=== PATIENT | male | born 1945 | race Caucasian/White ===

== ENCOUNTER 2019-08-02 19:27 | Emergency (ER) | payer OTHER ==
[~2019-08-02] VITALS: Ht 177.8 cm; Wt 83.9 kg
== END 2019-08-02 22:47 | disposition home or self-care (01) ==
LOC: ER 19:27
DX: R07.89 Other chest pain (principal)

== ENCOUNTER 2019-09-09 08:37 | Emergency (ER) | payer OTHER ==
[~2019-09-09] VITALS: Ht 170.2 cm; Wt 83.0 kg
[2019-09-09] MEDS ORDERED: IBU400 MG (09:07)
[2019-09-09] MEDS ORDERED: BACLOFEN10 MG (09:07)
[2019-09-09] MEDS ORDERED: CAMBIA50 MG (09:08)
== END 2019-09-09 15:33 | disposition home or self-care (01) ==
LOC: ER 08:37 → EDBD 08:53 → ER 15:33
DX: R10.11 Right upper quadrant pain (principal)

== ENCOUNTER 2019-10-02 07:11 | Outpatient (CLI) | payer OTHER ==
[~2019-10-02 07:11] MED LIST: BACLOFEN10 MG; CAMBIA50 MG; IBU400 MG
== END 2019-10-02 07:16 | disposition home or self-care (01) ==
LOC: LAB 07:11
DX: C18.0 Malignant neoplasm of cecum (principal); C22.1 Intrahepatic bile duct carcinoma; D64.89 Other specified anemias; R74.0 Nonspecific elevation of levels of transaminase and lactic acid dehydrogenase [LDH]; D68.8 Other specified coagulation defects; C34.32 Malignant neoplasm of lower lobe, left bronchus or lung; C78.01 Secondary malignant neoplasm of right lung; C78.02 Secondary malignant neoplasm of left lung

== ENCOUNTER 2019-10-11 07:54 | Outpatient (CLI) | payer OTHER | END 2019-10-11 08:01 | disposition home or self-care (01) | LOC: NUCLEAR 07:54 | PROVIDERS: ATTEND Internal Medicine Hematology & Oncology | DX: C34.32 Malignant neoplasm of lower lobe, left bronchus or lung (principal); C78.01 Secondary malignant neoplasm of right lung; C78.02 Secondary malignant neoplasm of left lung | CPT/HCPCS: 78815; A9552 ==

== ENCOUNTER → 2019-11-05 07:33 | Outpatient (CLI) | payer OTHER | END | disposition home or self-care (01) | LOC: LAB 07:33 | PROVIDERS: ATTEND Internal Medicine Cardiovascular Disease | DX: I10 Essential (primary) hypertension (principal); E11.9 Type 2 diabetes mellitus without complications; E03.8 Other specified hypothyroidism; E78.2 Mixed hyperlipidemia ==

== ENCOUNTER 2019-12-14 08:20 | Emergency (ER) | payer OTHER ==
[~2019-12-14] VITALS: Ht 177.8 cm; Wt 78.0 kg
== END 2019-12-14 11:31 | disposition home or self-care (01) ==
LOC: ER 08:20
DX: R10.13 Epigastric pain (principal); C34.81 Malignant neoplasm of overlapping sites of right bronchus and lung; C78.6 Secondary malignant neoplasm of retroperitoneum and peritoneum

== ENCOUNTER 2019-12-31 18:53 | Emergency (ER) | payer OTHER ==
[~2019-12-31] VITALS: Ht 177.8 cm; Wt 68.0 kg
== END 2019-12-31 23:35 | disposition home or self-care (01) ==
LOC: ER 18:53
DX: R06.02 Shortness of breath (principal); R53.81 Other malaise

== ENCOUNTER 2020-01-01 10:59 | Inpatient (IN) | payer OTHER ==
[~2020-01-01] VITALS: Ht 167.6 cm; Wt 54.4 kg
== END 2020-01-01 23:07 | disposition expired | DRG 208 ==
LOC: ER 10:59 → ICU-2 17:57
PROVIDERS: ADMIT Internal Medicine Cardiovascular Disease; ATTEND Internal Medicine Cardiovascular Disease
PROC: 0BH17EZ Insertion of Endotracheal Airway into Trachea, Via Natural or Artificial Opening (ICD-10-PCS; principal; 2020-01-01)
PROC: 5A1935Z Respiratory Ventilation, Less than 24 Consecutive Hours (ICD-10-PCS; 2020-01-01)
PROC: 4A033R1 Measurement of Arterial Saturation, Peripheral, Percutaneous Approach (ICD-10-PCS; 2020-01-01)
DX: J96.90 Respiratory failure, unspecified, unspecified whether with hypoxia or hypercapnia (principal); N17.0 Acute kidney failure with tubular necrosis; C79.89 Secondary malignant neoplasm of other specified sites; C34.91 Malignant neoplasm of unspecified part of right bronchus or lung; C34.32 Malignant neoplasm of lower lobe, left bronchus or lung; C78.01 Secondary malignant neoplasm of right lung; E87.2 Acidosis; Z66 Do not resuscitate; Z20.828 Contact with and (suspected) exposure to other viral communicable diseases; D69.6 Thrombocytopenia, unspecified; R57.1 Hypovolemic shock